=== PATIENT | male | born 1955 | race Caucasian/White ===

== ENCOUNTER 2019-04-08 21:22 | Inpatient (IN) ==
[2019-04-09] MEDS ORDERED: Naloxone 0.4 MG/ML INJ IVP PRN (01:31)
[2019-04-09] MEDS ORDERED: Ondansetron ODT 4 MG TAB.RAPDIS SL PRN (01:56)
[2019-04-09] MEDS ORDERED: Acetaminophen 325 MG TABLET PO PRN (01:56)
[2019-04-09] MEDS ORDERED: Furosemide 20 MG/2 ML VIAL IVP ONE (02:01)
[2019-04-09] MEDS: Budesonide/Formoterol 160/4.5 1 PUFF INH IH SCH ×3 (03:26→20:45)
[2019-04-09] MEDS: Ipratropium/Albuterol Neb 3 ML IH SCH ×6 (03:42→23:09)
[2019-04-09 05:36] LABS: Basophils % 0.7 %; Hematocrit 50.8 % (37.5-50.1); Immature Granulocytes % 0.5 % (0-4); Lymphocytes # 0.9 K/mcL (0.6-4.6); Lymphocytes % 15.7 %; Mean Corpuscular HGB Conc 33.5 g/dL (31.6-35.5); Mean Corpuscular Hemoglobin 29.3 pg (28.0-33.3); Mean Corpuscular Volume 87.4 fL (83.0-100.0); Mean Platelet Volume 10.1 fL (9.4-12.4); Monocytes # 0.6 K/mcL (0.0-1.3); Monocytes % 10.8 %; Platelet Count 203 K/mcL (140-400); Red Blood Count 5.81 M/mcL (4.19-5.50); Red Cell Distribution Width 13.7 % (11.5-14.5); Segmented Neutrophils % 72.3 %; White Blood Count 5.5 K/mcL (4.3-11.1)
[2019-04-09] MEDS: MethylPREDNISolone 40 MG/ML VIAL IVP SCH ×4 (05:42→23:43)
[2019-04-09] MEDS: *HR* Heparin 5,000 UNIT/ML VIAL SQ SCH ×2 (05:47→18:24)
[2019-04-09 05:53] LABS: Alanine Aminotransferase 10 Units/L (7-52); Albumin 4.1 g/dL (3.5-5.7); Albumin/Globulin Ratio 1.4 (1.1-2.2); Alkaline Phosphatase 74 Units/L (34-104); Aspartate Amino Transferase 18 Units/L (13-39); BUN/Creatinine Ratio 20 (6-26); Bilirubin,Total 0.3 mg/dL (0.3-1.0); Blood Urea Nitrogen 19 mg/dL (8-23); Carbon Dioxide 27 mEq/L (23-29); Chloride 101 mEq/L (98-107); Globulin 2.9 g/dL (2.4-3.5); Glucose 181 mg/dL (70-105); Osmolality,Calculated 291 (280-300); Potassium 4.8 mEq/L (3.5-5.1); Sodium 137 mEq/L (136-145); eGFR For African Americans > 60 (> 60); eGFR For Non-African Americans > 60 (> 60)
[2019-04-09 06:18] LABS: Platelet Estimate Normal (Normal); Reactive Lymphocytes Present (Not Present)
[2019-04-09] MEDS: Azithromycin 250 MG TABLET PO SCH (09:15)
[2019-04-09] MEDS: Nicotine 21 MG PATCH.TD24 TD PRN (10:37)
[2019-04-10] MEDS: Ipratropium/Albuterol Neb 3 ML IH SCH ×6 (03:43→19:52)
[2019-04-10] MEDS: MethylPREDNISolone 40 MG/ML VIAL IVP SCH ×4 (05:15→23:57)
[2019-04-10] MEDS: *HR* Heparin 5,000 UNIT/ML VIAL SQ SCH ×2 (05:15→18:42)
[2019-04-10] MEDS: Budesonide/Formoterol 160/4.5 1 PUFF INH IH SCH ×2 (07:55→19:52)
[2019-04-10] MEDS: Nicotine 21 MG PATCH.TD24 TD PRN (07:55)
[2019-04-10] MEDS: Azithromycin 250 MG TABLET PO SCH (07:55)
[2019-04-11] MEDS: Ipratropium/Albuterol Neb 3 ML IH SCH ×6 (00:30→20:28)
[2019-04-11] MEDS: MethylPREDNISolone 40 MG/ML VIAL IVP SCH ×3 (05:42→18:40)
[2019-04-11] MEDS: *HR* Heparin 5,000 UNIT/ML VIAL SQ SCH ×2 (05:43→18:39)
[2019-04-11] MEDS: Budesonide/Formoterol 160/4.5 1 PUFF INH IH SCH ×2 (08:14→20:32)
[2019-04-11] MEDS: Nicotine 21 MG PATCH.TD24 TD PRN (08:16)
[2019-04-11] MEDS: Azithromycin 250 MG TABLET PO SCH (08:16)
[2019-04-12] MEDS: Ipratropium/Albuterol Neb 3 ML IH SCH ×7 (00:15→23:07)
[2019-04-12] MEDS: MethylPREDNISolone 40 MG/ML VIAL IVP SCH ×4 (00:35→18:05)
[2019-04-12] MEDS: *HR* Heparin 5,000 UNIT/ML VIAL SQ SCH ×2 (05:17→18:05)
[2019-04-12] MEDS: Budesonide/Formoterol 160/4.5 1 PUFF INH IH SCH ×2 (07:19→20:46)
[2019-04-12] MEDS: Azithromycin 250 MG TABLET PO SCH (10:09)
[2019-04-12] MEDS: Nicotine 21 MG PATCH.TD24 TD PRN (10:10)
[2019-04-13] MEDS: MethylPREDNISolone 40 MG/ML VIAL IVP SCH ×2 (00:58→06:49)
[2019-04-13] MEDS: Ipratropium/Albuterol Neb 3 ML IH SCH ×3 (04:49→12:15)
[2019-04-13] MEDS: *HR* Heparin 5,000 UNIT/ML VIAL SQ SCH (06:50)
[2019-04-13 06:56] VITALS: BP 123/87
[2019-04-13] MEDS: Budesonide/Formoterol 160/4.5 1 PUFF INH IH SCH (08:04)
[2019-04-13] MEDS: Nicotine 21 MG PATCH.TD24 TD PRN (09:05)
[2019-04-13] MEDS: Azithromycin 250 MG TABLET PO SCH (09:06)
[2019-04-13] MEDS ORDERED: FLU Vac QV 19-20 (6Month+)/PF 0.5 ML SYRINGE IM ONE (12:25)
== END 2019-04-13 13:44 | disposition home or self-care (01) | DRG 190 ==
LOC: 2NENU → SUATTDRO 23:24
PROVIDERS: ADMIT Internal Medicine; ATTEND Internal Medicine

== ENCOUNTER 2021-09-29 18:51 | Inpatient (IN) ==
[2021-09-29] MEDS ORDERED: Ipratropium/Albuterol Neb 3 ML IH ONE ×3 (19:15→20:09)
[2021-09-29 19:35] LABS: Basophils % 0.4 %; Eosinophils # 0.1 K/mcL (0.0-0.6); Eosinophils % 1.6 %; Hemoglobin 18.8 g/dL (12.9-16.9); Immature Granulocytes % 0.3 % (0-4); Lymphocytes # 1.1 K/mcL (0.6-4.6); Lymphocytes % 16.2 %; Mean Corpuscular HGB Conc 31.8 g/dL (31.6-35.5); Mean Corpuscular Hemoglobin 28.4 pg (28.0-33.3); Mean Corpuscular Volume 89.3 fL (83.0-100.0); Monocytes # 0.6 K/mcL (0.0-1.3); Monocytes % 7.9 %; Neutrophils # 5.1 K/mcL (1.6-8.9); Platelet Count 218 K/mcL (140-400); Red Blood Count 6.63 M/mcL (4.19-5.50); Red Cell Distribution Width 17.7 % (11.5-14.5); Segmented Neutrophils % 73.6 %
[2021-09-29 19:36] LABS: Hematocrit 59.2 % (37.5-50.1)
[2021-09-29 19:36] LABS: VBG HCO3 32 mEq/L (21-27); VBG PCO2 62 mmHg (41-51); VBG PH 7.32 pH Units (7.32-7.42); VBG PO2 75 mmHg (25-50)
[2021-09-29 19:51] LABS: BUN/Creatinine Ratio 11 (6-26); Blood Urea Nitrogen 9 mg/dL (8-23); Calcium 8.7 mg/dL (8.6-10.3); Carbon Dioxide 33 mEq/L (23-29); Chloride 102 mEq/L (98-107); Glucose 158 mg/dL (70-105); Osmolality,Calculated 296 (280-300); Potassium 3.7 mEq/L (3.5-5.1); Sodium 142 mEq/L (136-145); Troponin I < 0.03 ng/mL (< 0.04); eGFR For African Americans > 60 (> 60); eGFR For Non-African Americans > 60 (> 60)
[2021-09-29] MEDS ORDERED: Iopamidol - 370 500 ML MLS IVP ONE (20:04)
[2021-09-29] MEDS ORDERED: methylPREDNISolone 125 MG/2 ML VIAL IVP ONE (20:09)
[2021-09-29 20:33] LABS: INR 1.2; Prothrombin Time 12.9 Seconds (9.4-12.1)
[2021-09-29 20:36] LABS: Activated Partial Thrombo Time 29.8 Seconds (26.0-36.0)
[2021-09-29 20:40] LABS: Alanine Aminotransferase 20 Units/L (7-52); Albumin 3.7 g/dL (3.5-5.7); Albumin/Globulin Ratio 1.2 (1.1-2.2); Alkaline Phosphatase 88 Units/L (34-104); Aspartate Amino Transferase 18 Units/L (13-39); Bilirubin,Indirect 0.5 mg/dL (0.0-1.0); Bilirubin,Total 0.5 mg/dL (0.3-1.0); Total Protein 6.7 g/dL (6.4-8.9)
[2021-09-29 21:31] LABS: Influenza A PCR Negative (Negative); Influenza B PCR Negative (Negative); Resp. Syncytial Virus PCR Negative (Negative)
[2021-09-29 21:32] LABS: SARS-CoV-2 by PCR (In House) Negative (Negative)
[2021-09-29] MEDS ORDERED: *HR* HYDROcodone/Acet 5/325 mg TABLET PO PRN (23:48)
[2021-09-29] MEDS ORDERED: Ondansetron 4 MG/2 ML VIAL IVP PRN (23:48)
[2021-09-29] MEDS ORDERED: Naloxone 0.4 MG/ML INJ IVP PRN (23:48)
[2021-09-29] MEDS ORDERED: Melatonin 3 MG TABLET PO PRN (23:48)
[2021-09-29] MEDS ORDERED: Acetaminophen 325 MG TABLET PO PRN (23:48)
[2021-09-30 00:44] LABS: ABG Base Excess 3 mEq/L (-2 to 3); ABG HCO3 31 mEq/L (21-27); ABG Oxygen Saturation 85 % (95-98); ABG PCO2 59 mmHg (35-45); ABG PH 7.33 pH Units (7.32-7.45); ABG PO2 55 mmHg (85-104); ABG TCO2 33 mEq/L (20-26)
[2021-09-30] MEDS: Ipratropium/Albuterol Neb 3 ML IH SCH ×7 (00:47→23:44)
[2021-09-30] MEDS: methylPREDNISolone 125 MG/2 ML VIAL IVP SCH ×5 (00:56→23:01)
[2021-09-30 01:21] LABS: Basophils % 0.2 %; Hemoglobin 18.5 g/dL (12.9-16.9); Immature Granulocytes % 0.5 % (0-4); Lymphocytes # 0.3 K/mcL (0.6-4.6); Lymphocytes % 4.7 %; Mean Corpuscular HGB Conc 30.4 g/dL (31.6-35.5); Mean Corpuscular Volume 92.3 fL (83.0-100.0); Mean Platelet Volume 9.1 fL (9.4-12.4); Monocytes # 0.1 K/mcL (0.0-1.3); Monocytes % 0.9 %; Neutrophils # 5.4 K/mcL (1.6-8.9); Platelet Count 231 K/mcL (140-400); Red Cell Distribution Width 17.6 % (11.5-14.5); Segmented Neutrophils % 93.7 %; White Blood Count 5.8 K/mcL (4.3-11.1)
[2021-09-30 01:28] LABS: Hematocrit 60.9 % (37.5-50.1)
[2021-09-30 01:41] LABS: Alanine Aminotransferase 18 Units/L (7-52); Albumin 3.8 g/dL (3.5-5.7); Albumin/Globulin Ratio 1.2 (1.1-2.2); Alkaline Phosphatase 84 Units/L (34-104); Aspartate Amino Transferase 16 Units/L (13-39); BUN/Creatinine Ratio 13 (6-26); Bilirubin,Total 0.3 mg/dL (0.3-1.0); Blood Urea Nitrogen 11 mg/dL (8-23); Calcium 8.8 mg/dL (8.6-10.3); Carbon Dioxide 29 mEq/L (23-29); Chloride 103 mEq/L (98-107); Chol/HDL Ratio 4.2 (0-4.9); Cholesterol 159 mg/dL (< 200); Globulin 3.3 g/dL (2.4-3.5); Glucose 177 mg/dL (70-105); HDL Cholesterol 38 mg/dL (40-59); LDL Cholesterol,Calculated 102 mg/dL (< 100); Magnesium 2.2 mg/dL (1.6-2.6); Osmolality,Calculated 292 (280-300); Phosphorous 2.3 mg/dL (2.7-4.5); Potassium 4.5 mEq/L (3.5-5.1); Sodium 139 mEq/L (136-145); Total Protein 7.1 g/dL (6.4-8.9); Triglycerides 95 mg/dL (< 150); eGFR For African Americans > 60 (> 60); eGFR For Non-African Americans > 60 (> 60)
[2021-09-30 03:22] LABS: INR 1.1; Prothrombin Time 12.7 Seconds (9.4-12.1)
[2021-09-30 03:24] LABS: Activated Partial Thrombo Time 30.9 Seconds (26.0-36.0)
[2021-09-30] MEDS ORDERED: D5% in Water 1,000 ML IVC PRN ×2 (03:30→12:32)
[2021-09-30] MEDS ORDERED: *HR* Dextrose 50 % in Water (Syg) 50 ML SYRINGE IVP PRN ×2 (03:30→12:32)
[2021-09-30] MEDS ORDERED: Dextrose Gel 15 GM/37.5 ML TUBE PO PRN ×4 (03:30→12:32)
[2021-09-30] MEDS ORDERED: Nicotine 2 MG GUM BC PRN (03:36)
[2021-09-30] MEDS ORDERED: Gadolinium Contrast Agent (WT Based) IV PRN (03:36)
[2021-09-30] MEDS ORDERED: Iopamidol - 370 500 ML MLS IVP ONE (03:38)
[2021-09-30] MEDS ORDERED: Perflutren Lipid Microsphere 1.3 ML in 0.9 % Sodium Chloride 8.7 ML IVP PRN (03:38)
[2021-09-30 06:30] LABS: Thyroid Stimulating Hormone 0.233 mcIU/mL (0.340-5.600)
[2021-09-30 07:25] LABS: Estimated Average Glucose 140 mg/dl; Hemoglobin A1C 6.5 %
[2021-09-30] MEDS: Budesonide/Formoterol 160/4.5 1 PUFF INH IH SCH ×2 (07:44→20:19)
[2021-09-30] MEDS ORDERED: GADOBUTROL 30 MMOL/30 ML VIAL IVP ONE (10:11)
[2021-09-30] MEDS: Chlorhexidine Rinse 15 ML MOUTHWASH MM SCH ×2 (10:11→19:56)
[2021-09-30] MEDS: Multivit/Ca/Min/Fe/FA 1 TAB TABLET PO SCH (10:11)
[2021-09-30] MEDS: Artificial Tears SOLN 15 ML BOTTLE BOTH EYES SCH ×2 (10:12→19:56)
[2021-09-30] MEDS: Nicotine 21 MG PATCH.TD24 TD SCH (10:12)
[2021-09-30 12:35] LABS: ABG Base Excess 2 mEq/L (-2 to 3); ABG HCO3 32 mEq/L (21-27); ABG Oxygen Saturation 91 % (95-98); ABG PCO2 65 mmHg (35-45); ABG PO2 71 mmHg (85-104); ABG TCO2 34 mEq/L (20-26)
[2021-09-30] MEDS: Insulin LISPRO 300 UNITS/3 ML VIAL SUBQ SCH ×3 (13:20→23:03)
[2021-09-30] MEDS: Saline Nasal Spray 44 ML BOTTLE NS PRN (19:57)
[2021-10-01] MEDS: Ipratropium/Albuterol Neb 3 ML IH SCH ×5 (03:37→20:43)
[2021-10-01] MEDS: Insulin LISPRO 300 UNITS/3 ML VIAL SUBQ SCH ×4 (05:01→23:56)
[2021-10-01] MEDS: methylPREDNISolone 125 MG/2 ML VIAL IVP SCH ×4 (05:07→23:59)
[2021-10-01 05:20] LABS: Basophils % 0.1 %; Hemoglobin 18.2 g/dL (12.9-16.9); Immature Granulocytes % 0.6 % (0-4); Lymphocytes # 0.3 K/mcL (0.6-4.6); Lymphocytes % 2.1 %; Mean Corpuscular HGB Conc 30.4 g/dL (31.6-35.5); Mean Corpuscular Hemoglobin 28.5 pg (28.0-33.3); Mean Corpuscular Volume 93.6 fL (83.0-100.0); Mean Platelet Volume 9.5 fL (9.4-12.4); Monocytes # 0.4 K/mcL (0.0-1.3); Monocytes % 2.8 %; Platelet Count 232 K/mcL (140-400); Red Blood Count 6.39 M/mcL (4.19-5.50); Red Cell Distribution Width 17.3 % (11.5-14.5); Segmented Neutrophils % 94.4 %
[2021-10-01 05:35] LABS: Hematocrit 59.8 % (37.5-50.1); White Blood Count 12.7 K/mcL (4.3-11.1)
[2021-10-01 07:13] LABS: BUN/Creatinine Ratio 27 (6-26); Blood Urea Nitrogen 23 mg/dL (8-23); Calcium 9.1 mg/dL (8.6-10.3); Carbon Dioxide 34 mEq/L (23-29); Chloride 102 mEq/L (98-107); Glucose 198 mg/dL (70-105); Magnesium 2.7 mg/dL (1.6-2.6); Osmolality,Calculated 301 (280-300); Phosphorous 4.3 mg/dL (2.7-4.5); Potassium 5.7 mEq/L (3.5-5.1); Sodium 141 mEq/L (136-145); eGFR For African Americans > 60 (> 60); eGFR For Non-African Americans > 60 (> 60)
[2021-10-01] MEDS: Budesonide/Formoterol 160/4.5 1 PUFF INH IH SCH ×2 (07:42→20:42)
[2021-10-01] MEDS: Saline Nasal Spray 44 ML BOTTLE NS PRN (10:12)
[2021-10-01] MEDS: Chlorhexidine Rinse 15 ML MOUTHWASH MM SCH ×2 (10:12→20:22)
[2021-10-01] MEDS: Multivit/Ca/Min/Fe/FA 1 TAB TABLET PO SCH (10:12)
[2021-10-01] MEDS: *HR* LORazepam 0.5 MG TABLET PO PRN (10:12)
[2021-10-01] MEDS: Artificial Tears SOLN 15 ML BOTTLE BOTH EYES SCH ×2 (10:13→20:22)
[2021-10-01] MEDS ORDERED: Perflutren Lipid Microsphere 1.3 ML in 0.9 % Sodium Chloride 8.7 ML IVP PRN (11:48)
[2021-10-01] MEDS: Nicotine 21 MG PATCH.TD24 TD SCH (12:49)
[2021-10-01] MEDS: *HR* Heparin 5,000 UNIT/ML VIAL SQ SCH ×2 (15:42→20:22)
[2021-10-01] MEDS: Doxycycline 100 MG in 0.9 % Sodium Chloride Mini Bag 100 ML IVPB SCH (19:38)
[2021-10-02] MEDS: Ipratropium/Albuterol Neb 3 ML IH SCH ×7 (00:59→23:05)
[2021-10-02 03:33] LABS: BUN/Creatinine Ratio 24 (6-26); Blood Urea Nitrogen 22 mg/dL (8-23); Calcium 8.7 mg/dL (8.6-10.3); Carbon Dioxide 33 mEq/L (23-29); Chloride 100 mEq/L (98-107); Glucose 181 mg/dL (70-105); Magnesium 2.3 mg/dL (1.6-2.6); Osmolality,Calculated 292 (280-300); Potassium 4.8 mEq/L (3.5-5.1); Sodium 137 mEq/L (136-145); eGFR For African Americans > 60 (> 60); eGFR For Non-African Americans > 60 (> 60)
[2021-10-02] MEDS: *HR* Heparin 5,000 UNIT/ML VIAL SQ SCH ×4 (05:07→20:15)
[2021-10-02] MEDS: Insulin LISPRO 300 UNITS/3 ML VIAL SUBQ SCH ×4 (05:07→18:15)
[2021-10-02] MEDS: Doxycycline 100 MG in 0.9 % Sodium Chloride Mini Bag 100 ML IVPB SCH ×2 (05:17→18:11)
[2021-10-02] MEDS: methylPREDNISolone 125 MG/2 ML VIAL IVP SCH ×3 (05:18→18:13)
[2021-10-02] MEDS: Budesonide/Formoterol 160/4.5 1 PUFF INH IH SCH ×2 (07:56→20:18)
[2021-10-02] MEDS: Nicotine 21 MG PATCH.TD24 TD SCH (09:46)
[2021-10-02] MEDS: Artificial Tears SOLN 15 ML BOTTLE BOTH EYES SCH ×2 (09:50→20:16)
[2021-10-02] MEDS: Multivit/Ca/Min/Fe/FA 1 TAB TABLET PO SCH (09:50)
[2021-10-02] MEDS: Chlorhexidine Rinse 15 ML MOUTHWASH MM SCH ×3 (09:50→20:13)
[2021-10-02] MEDS: Furosemide 20 MG/2 ML VIAL IVP SCH (09:50)
[2021-10-02] MEDS: *HR* LORazepam 0.5 MG TABLET PO PRN (20:10)
[2021-10-03] MEDS: methylPREDNISolone 125 MG/2 ML VIAL IVP SCH ×5 (00:47→22:58)
[2021-10-03 02:56] LABS: Basophils % 0.1 %; Hemoglobin 17.4 g/dL (12.9-16.9); Immature Granulocytes % 0.5 % (0-4); Lymphocytes # 0.3 K/mcL (0.6-4.6); Lymphocytes % 2.3 %; Mean Corpuscular HGB Conc 30.2 g/dL (31.6-35.5); Mean Corpuscular Hemoglobin 27.8 pg (28.0-33.3); Mean Platelet Volume 9.2 fL (9.4-12.4); Monocytes # 0.3 K/mcL (0.0-1.3); Monocytes % 2.8 %; Neutrophils # 11.6 K/mcL (1.6-8.9); Platelet Count 198 K/mcL (140-400); Red Blood Count 6.27 M/mcL (4.19-5.50); Red Cell Distribution Width 16.9 % (11.5-14.5); Segmented Neutrophils % 94.3 %; White Blood Count 12.3 K/mcL (4.3-11.1)
[2021-10-03 02:58] LABS: Hematocrit 57.7 % (37.5-50.1)
[2021-10-03 03:15] LABS: BUN/Creatinine Ratio 24 (6-26); Blood Urea Nitrogen 21 mg/dL (8-23); Calcium 8.9 mg/dL (8.6-10.3); Carbon Dioxide 33 mEq/L (23-29); Chloride 102 mEq/L (98-107); Glucose 191 mg/dL (70-105); Magnesium 2.3 mg/dL (1.6-2.6); Osmolality,Calculated 296 (280-300); Phosphorous 3.2 mg/dL (2.7-4.5); Potassium 5.4 mEq/L (3.5-5.1); Sodium 139 mEq/L (136-145); eGFR For African Americans > 60 (> 60); eGFR For Non-African Americans > 60 (> 60)
[2021-10-03] MEDS: Ipratropium/Albuterol Neb 3 ML IH SCH ×5 (04:00→20:35)
[2021-10-03] MEDS: Doxycycline 100 MG in 0.9 % Sodium Chloride Mini Bag 100 ML IVPB SCH ×2 (05:18→18:37)
[2021-10-03] MEDS: *HR* Heparin 5,000 UNIT/ML VIAL SQ SCH ×3 (05:18→23:15)
[2021-10-03] MEDS: Budesonide/Formoterol 160/4.5 1 PUFF INH IH SCH ×2 (07:37→20:35)
[2021-10-03] MEDS: Insulin LISPRO 300 UNITS/3 ML VIAL SUBQ SCH ×3 (08:00→16:38)
[2021-10-03] MEDS ORDERED: *HR* Propofol 200 MG/20 ML VIAL IVP ONE (10:13)
[2021-10-03] MEDS ORDERED: *HR* Succinylcholine 200 MG/10 ML VIAL IVP ONE (10:27)
[2021-10-03] MEDS ORDERED: Lidocaine -MPF 2% 2 ML VIAL ONE (10:27)
[2021-10-03] MEDS ORDERED: Ondansetron 4 MG/2 ML VIAL ONE (10:27)
[2021-10-03] MEDS ORDERED: Lidocaine HCL 4 ML Topical Solution (Laryng-O-Jet Kit Sterile Pak) TP ONE (10:28)
[2021-10-03] MEDS: Artificial Tears SOLN 15 ML BOTTLE BOTH EYES SCH ×2 (11:35→23:07)
[2021-10-03] MEDS: Chlorhexidine Rinse 15 ML MOUTHWASH MM SCH ×2 (11:36→23:15)
[2021-10-03] MEDS: Multivit/Ca/Min/Fe/FA 1 TAB TABLET PO SCH (11:36)
[2021-10-03] MEDS: Furosemide 20 MG/2 ML VIAL IVP SCH (11:36)
[2021-10-03] MEDS: Nicotine 21 MG PATCH.TD24 TD SCH (13:58)
[2021-10-03 14:30] LABS: Appearance of Body Fluid Hazy (Clear); Volume of Body Fluid 22 mL
[2021-10-03] MEDS: *HR* LORazepam 0.5 MG TABLET PO PRN (23:04)
[2021-10-04] MEDS: Ipratropium/Albuterol Neb 3 ML IH SCH ×6 (00:01→20:28)
[2021-10-04 02:19] LABS: Basophils % 0.1 %; Hematocrit 58.5 % (37.5-50.1); Hemoglobin 17.8 g/dL (12.9-16.9); Immature Granulocytes % 0.6 % (0-4); Lymphocytes # 0.3 K/mcL (0.6-4.6); Lymphocytes % 2.6 %; Mean Corpuscular HGB Conc 30.4 g/dL (31.6-35.5); Mean Corpuscular Hemoglobin 27.9 pg (28.0-33.3); Mean Corpuscular Volume 91.7 fL (83.0-100.0); Mean Platelet Volume 9.2 fL (9.4-12.4); Monocytes # 0.4 K/mcL (0.0-1.3); Monocytes % 3.7 %; Neutrophils # 10.3 K/mcL (1.6-8.9); Platelet Count 205 K/mcL (140-400); Red Blood Count 6.38 M/mcL (4.19-5.50); Red Cell Distribution Width 17.2 % (11.5-14.5); White Blood Count 11.1 K/mcL (4.3-11.1)
[2021-10-04 02:29] LABS: BUN/Creatinine Ratio 27 (6-26); Blood Urea Nitrogen 23 mg/dL (8-23); Carbon Dioxide 34 mEq/L (23-29); Chloride 98 mEq/L (98-107); Glucose 255 mg/dL (70-105); Magnesium 2.3 mg/dL (1.6-2.6); Osmolality,Calculated 294 (280-300); Phosphorous 2.9 mg/dL (2.7-4.5); Potassium 5.3 mEq/L (3.5-5.1); Sodium 136 mEq/L (136-145); eGFR For African Americans > 60 (> 60); eGFR For Non-African Americans > 60 (> 60)
[2021-10-04] MEDS: *HR* Heparin 5,000 UNIT/ML VIAL SQ SCH ×3 (05:33→20:47)
[2021-10-04] MEDS: Doxycycline 100 MG in 0.9 % Sodium Chloride Mini Bag 100 ML IVPB SCH ×2 (05:38→17:21)
[2021-10-04] MEDS: methylPREDNISolone 125 MG/2 ML VIAL IVP SCH ×4 (05:38→23:43)
[2021-10-04] MEDS: Budesonide/Formoterol 160/4.5 1 PUFF INH IH SCH ×2 (07:57→20:28)
[2021-10-04] MEDS: Insulin LISPRO 300 UNITS/3 ML VIAL SUBQ SCH ×3 (08:48→17:21)
[2021-10-04] MEDS: Multivit/Ca/Min/Fe/FA 1 TAB TABLET PO SCH (08:48)
[2021-10-04] MEDS: Furosemide 20 MG/2 ML VIAL IVP SCH (08:48)
[2021-10-04] MEDS: Nicotine 21 MG PATCH.TD24 TD SCH (08:49)
[2021-10-04] MEDS: Chlorhexidine Rinse 15 ML MOUTHWASH MM SCH ×2 (08:50→20:47)
[2021-10-04] MEDS: Artificial Tears SOLN 15 ML BOTTLE BOTH EYES SCH ×2 (08:50→20:47)
[2021-10-05] MEDS: Ipratropium/Albuterol Neb 3 ML IH SCH ×4 (00:17→11:07)
[2021-10-05] MEDS: *HR* Heparin 5,000 UNIT/ML VIAL SQ SCH (05:54)
[2021-10-05] MEDS: methylPREDNISolone 125 MG/2 ML VIAL IVP SCH (06:06)
[2021-10-05] MEDS: Doxycycline 100 MG in 0.9 % Sodium Chloride Mini Bag 100 ML IVPB SCH (06:07)
[2021-10-05] MEDS: Budesonide/Formoterol 160/4.5 1 PUFF INH IH SCH (07:17)
[2021-10-05] MEDS: Multivit/Ca/Min/Fe/FA 1 TAB TABLET PO SCH (08:17)
[2021-10-05] MEDS: Insulin LISPRO 300 UNITS/3 ML VIAL SUBQ SCH (08:17)
[2021-10-05] MEDS: Nicotine 21 MG PATCH.TD24 TD SCH (08:17)
[2021-10-05] MEDS: Artificial Tears SOLN 15 ML BOTTLE BOTH EYES SCH (08:18)
[2021-10-05] MEDS: Chlorhexidine Rinse 15 ML MOUTHWASH MM SCH (08:18)
[2021-10-05 08:29] VITALS: BP 143/77; PULSE 118; TEMP 98.7; O2SAT 86
[2021-10-05] MEDS ORDERED: Furosemide 20 MG TABLET PO SCH (09:00)
== END 2021-10-05 11:53 | disposition hospice, home (50) | DRG 180 ==
LOC: EMEROOARM 18:51 → 3NENU 18:51 → SUATTDRO 23:04 → 3NENU 23:30 → SUATTDRO 23:50
PROVIDERS: ADMIT Internal Medicine; ATTEND Family Medicine